=== PATIENT | female | born 1980 | race Caucasian/White ===

== ENCOUNTER 2018-09-16 20:00 | Inpatient (IN) | payer OTHER ==
[2018-09-16] MEDS ORDERED: Lidocaine 1% (PF) 30 ML VIAL SC PRN (20:52)
[2018-09-16] MEDS ORDERED: NS w/ Oxytocin 10 units 500 ML IV SCH ×2 (20:52)
[2018-09-16] MEDS ORDERED: Ondansetron PF 4 MG/2 ML Vial IVP PRN (20:52)
[2018-09-16] MEDS ORDERED: HYDROcodone/Acetaminophen 5/325 mg Tablet PO PRN ×2 (20:52)
[2018-09-16] MEDS ORDERED: Ibuprofen 800 MG TAB PO PRN (20:52)
[2018-09-16] MEDS ORDERED: NS / Oxytocin 40 units/1000ml 1,000 ML IV PRN (20:52)
[2018-09-16 20:58] VITALS: BMI 29.0
[2018-09-16 21:27] LABS: Hemoglobin 12.6 g/dL (12.0-16.0); Mean Corpuscular HGB CONC 35.4 g/dL (32.0-36.0); Mean Corpuscular Hemoglobin 32.8 pg (27.0-31.0); Mean Corpuscular Volume 92.8 fL (78.0-98.0); Mean Platelet Volume 8.3 fL (7.4-10.4); Platelet Count 256 thou/uL (130-400); RBC Distribution Width 12.5 % (11.5-14.5); Red Blood Cell (RBC) Count 3.82 mill/uL (4.20-5.40); White Blood Cell (WBC) Count 11.2 thou/uL (4.8-10.8)
--- NOTE | 2018-09-16 21:49 | PDOC.EVN ---
Event Note - Event Note Event Note: OBGYN FIRE PATROL Cook Cervical Balloon placement procedure: Indication: 39 weeks 6 days, requested placement per Dr Saeed I evaluated the patient at bedside at 2129. I discussed Cook balloon with her and partner. I discussed MOA and time span for max use (12 hrs). After verbal consent, speculum inserted into vagina and no evidence VB or ROM. CX was 1cm. CX prepped with sterile saline and large swabs. Cook balloon placed per FDA IFU guidelines: first the U balloon was inflated to 40ml, then the V balloon was pulled from the uterine cavity into the vagina and confirmed to be out of the cervix...V balloon filled to 20ml. After 3 minutes passed to allow uterine accomodation: balloons filled to capacity in 20ml increments: 80ml saline per balloon. No complications. Patient tolerated well No decels Balloon in at 2135
[2018-09-16] MEDS: Lactated Ringer's 1,000 ML IV SCH (22:00)
[2018-09-16] MEDS: Butorphanol Tartrate 1 MG/ML VIAL SLOW IVP PRN (22:08)
[2018-09-16] MEDS: Promethazine HCl 25 MG/ML VIAL IM PRN (22:09)
[2018-09-16 23:30] LABS: HBSAg Index 0.18 S/CO (0-0.99); Hep B Surf Ag Non-Reactive S/CO (NonReactive)
[2018-09-17] MEDS: Promethazine HCl 25 MG/ML VIAL IM PRN (00:27)
[2018-09-17] MEDS: Butorphanol Tartrate 1 MG/ML VIAL SLOW IVP PRN (00:28)
[2018-09-17] MEDS ORDERED: Fentanyl 4 mcg/Bup 0.1% Cadd 100 ML ONE ×2 (04:00→12:42)
[2018-09-17] MEDS ORDERED: Naloxone HCl 0.4 mg/ml Vial IVP PRN ×4 (04:42→18:54)
[2018-09-17] MEDS ORDERED: Acetaminophen 325 MG TAB PO PRN (04:42)
[2018-09-17] MEDS ORDERED: ePHEDrine/0.9% NaCl/PF SYRINGE 50 mg/10 ml SLOW IVP PRN (04:42)
[2018-09-17] MEDS ORDERED: diphenhydrAMINE 50 MG/ML VIAL IVP PRN ×2 (04:42→18:54)
[2018-09-17] MEDS ORDERED: Promethazine HCl 25 MG/ML VIAL IM PRN ×2 (04:42→18:54)
[2018-09-17] MEDS ORDERED: Eucerin (Mineral Oil/Petrolatum,White) 30 gm Jar TOP PRN ×2 (04:42→18:54)
[2018-09-17] MEDS ORDERED: Lactated Ringer's 500 ML IV PRN (04:42)
[2018-09-17] MEDS ORDERED: Ondansetron PF 4 MG/2 ML Vial IVP PRN ×3 (04:42→21:51)
[2018-09-17] MEDS ORDERED: Fentanyl 4 mcg/Bupivacaine 0.1% Cassette 100 ML EPIDURAL SCH (04:45)
[2018-09-17] MEDS ORDERED: Communication Order-Pharmacy FS SCH ×2 (04:45→19:00)
--- NOTE | 2018-09-17 07:57 | PDOC.LDHP ---
Labor and Delivery H&P Chief complaint: scheduled induction HPI: Pt is a 38yo G1 @ 40.0 weeks here for IOL. uncomplicated. Cook balloon placed last night and out this AM. Current gestational age (weeks): 40 Due date: 09/17/18 Dating criteria: last menstrual period, first trimester ultrasound Grav: 1 Para: 0 Current complications: none Abnormal US findings: No Current medications: pre- vitamins Previous surgical history: other (breast reconstruction) Allergies/Adverse Reactions: Allergies Allergy/AdvReac Type Severity Reaction Status Date / Time No Allergy Information Allergy Verified 09/16/18 21:01 Available Social history: none - Physical Exam Vital signs reviewed and normal: yes General: resting Heart: RRR Lungs: CTAB Abdomen: gravid Extremeties: no edema FHT: category 1 - Vaginal Exam cm dilated: 6 (AROM clear fluid on exam) Effacement: 50% Station: 0 - OB Labs Blood type: A RH: positive Antibody Screen: negative HIV: negative RPR: negative HEPSAg: negative 1 hour GCT: positive (134) 3 hour GTT: neg GBS: negative Rubella: immune - Assessment L&D Assessment: elective induction at term - Plan Plan: admit to L&D, labor augmentation if indicated, informed consent obtained -: A/P: 38yo G1 @ 40 weeks here for IOL. SP Cook Balloon and AROM @ 6cm. Plan of care reviewed patient.
[2018-09-17] MEDS: Calcium Carbonate 500 MG ChewTAB PO PRN ×2 (15:07→16:00)
[2018-09-17] MEDS ORDERED: CEFAZOLIN 2 GM/50 ML BAG ONE (17:53)
[2018-09-17] MEDS ORDERED: Bupivacaine 0.5% 10 ML VIAL ONE (18:09)
[2018-09-17] MEDS ORDERED: Bicitra 30 ML UDCUP PO SCH (18:15)
[2018-09-17] MEDS ORDERED: Clindamycin/D5W 900 MG in Premix Bag 1 BAG IVPB SCH (18:15)
[2018-09-17] MEDS ORDERED: Ondansetron PF 4 MG/2 ML Vial ONE (18:15)
[2018-09-17] MEDS ORDERED: ePHEDrine/0.9% NaCl/PF SYRINGE 50 mg/10 ml ONE (18:15)
[2018-09-17] MEDS ORDERED: Oxytocin 10 UNITS/ML VIAL ONE (18:15)
[2018-09-17] MEDS ORDERED: Ketorolac Tromethamine 30 MG/ML VIAL ONE (18:15)
[2018-09-17] MEDS ORDERED: PHENYLEPHRINE-NS 100 MCG/ML 10 ML SYRINGE ONE (18:15)
[2018-09-17] MEDS ORDERED: CEFAZOLIN/Water 2 GM/20 ML SYRINGE SLOW IVP SCH (18:15)
--- NOTE | 2018-09-17 18:17 | PDOC.LDPN ---
Labor & Delivery Progress Note - Subjective Subjective: comfortable - Objective Vital signs reviewed and normal: yes General: resting Uterine fundus: non tender Dilation: 6 Effacement: 75% Station: 0 FHT: category 1 AROM: clear fluid - Assessment (1) 40 weeks gestation of Code(s): Z3A.40 - 40 WEEKS GESTATION OF Current Visit: Yes Status : Acute Plan: continue plan of care -: A/P: Cervix noted to be effaced compared to admit exam. Continue pitocin.
[2018-09-17] MEDS ORDERED: Lidocaine 2% 10 ML INJ ONE (18:18)
--- NOTE | 2018-09-17 18:19 | PDOC.LDPN ---
Labor & Delivery Progress Note - Subjective Subjective: other (anxious, request CS) - Objective Vital signs reviewed and normal: yes Abnormal vital signs: T99.7 axillary General: NAD Uterine fundus: non tender Dilation: 9 Effacement: 75% Station: 0 - Assessment (1) 40 weeks gestation of Code(s): Z3A.40 - 40 WEEKS GESTATION OF Current Visit: Yes Status : Acute (2) Arrested active phase of labor Code(s): O62.1 - SECONDARY UTERINE INERTIA Current Visit: Yes Status: Acute Plan: other -: A/P:38 yo G1 @40 weeks, here for IOL w slow progress to active phase and pt requesting CS. Discussed more time for process of labor vs CS at maternal request with risk and benefits of both. Pt request CS. Ancef and Clinda for surg prophylaxis ordered.
[2018-09-17] MEDS ORDERED: Bicitra 30 ML UDCUP ONE (18:22)
[2018-09-17] MEDS ORDERED: CEFAZOLIN 2 GM/50 ML-DEXTROSE 2 GM in Premix Bag 1 BAG IVPB SCH (18:30)
[2018-09-17] MEDS ORDERED: Promethazine HCl 25 MG SUPP PR PRN (18:54)
[2018-09-17] MEDS ORDERED: Naloxone HCl 0.4 mg/ml Vial IV PRN (18:54)
[2018-09-17] MEDS ORDERED: Meperidine HCl/PF 25 MG/ML VIAL SLOW IVP PRN (18:54)
[2018-09-17] MEDS ORDERED: L&D-Morphine 4 MG/ML VIAL SLOW IVP PRN (18:54)
[2018-09-17] MEDS ORDERED: HYDROmorphone 2 MG/ML VIAL SLOW IVP PRN (18:54)
[2018-09-17] MEDS ORDERED: Ondansetron HCl/PF 4 MG/2 ML Vial IVP PRN (18:54)
[2018-09-17] MEDS ORDERED: Morphine PF 1 MG/ML SYR ONE (19:00)
[2018-09-17] MEDS ORDERED: Ketorolac Tromethamine 30 MG/ML VIAL IVP SCH (19:00)
--- NOTE | 2018-09-17 19:10 | PDOC.OPDEL ---
OB Operative/Delivery Note Delivery Dr/Surgeon: Christophe Assist: Eyad Pre-Delivery Diagnosis: arrest of dilation (at 7cm) Procedure/Post Delivery Dx: primary low transverse CS Weeks gestation: 40 - Findings A Sex: female Weight: 7 lb - 1 min: 8 - 5 min: 9 - Additional Findings/Plan Placenta delivered: spontaneous findings: low transverse hysterotomy without extension, normal uterus, normal tubes, normal ovaries Estimated blood loss: 800ml Compilations/Other Findings: nuchal cord x 1 Post delivery plan: routine recovery
[2018-09-17] MEDS: Lactated Ringer's 1,000 ML IV SCH ×2 (19:13→19:14)
[2018-09-17] MEDS ORDERED: Lanolin Ointment 7 GM TUBE TOP PRN (21:51)
[2018-09-17] MEDS ORDERED: Meperidine HCl/PF 25 MG/ML VIAL IM PRN (21:51)
[2018-09-17] MEDS ORDERED: NS / Oxytocin 40 units/1000ml 1,000 ML IV SCH (21:51)
[2018-09-17] MEDS ORDERED: HYDROcodone/Acetaminophen 5/325 mg Tablet PO PRN (21:51)
[2018-09-17] MEDS ORDERED: diphenhydrAMINE 25 MG CAP PO PRN (21:51)
[2018-09-17] MEDS ORDERED: Bisacodyl 10 MG SUPP PR PRN (21:51)
[2018-09-17] MEDS ORDERED: Lactated Ringer's 1,000 ML IV SCH (21:51)
[2018-09-17] MEDS ORDERED: Zolpidem Tartrate 5 MG TAB PO PRN (21:51)
[2018-09-17] MEDS ORDERED: Ibuprofen 800 MG TAB PO SCH (22:00)
[2018-09-17] MEDS ORDERED: Docusate Calcium (SURFAK) 240 MG CAP PO SCH (22:15)
[2018-09-17] MEDS: Ketorolac Tromethamine 30 MG/ML VIAL IVP PRN (23:23)
--- NOTE | 2018-09-17 23:32 | OP ---
DATE OF PROCEDURE: 09/17/2018 PREOPERATIVE DIAGNOSES: 1. A 38-year-old G1 at 40 weeks. 2. Arrest of dilation at 7 cm. POSTOPERATIVE DIAGNOSES: 1. A 38-year-old G1 at 40 weeks. 2. Arrest of dilation at 7 cm. STRIP MINE SUPERVISOR: MD Eyad ANESTHESIA: Epidural. COMPLICATIONS: None. ESTIMATED BLOOD LOSS: 800 mL. QUANTITATIVE BLOOD LOSS: Pending. FINDINGS: 1. Low-transverse hysterotomy without extension. 2. Female , vigorous, Apgars 8 and 9 with nuchal cord reduced at the time of delivery and weight 7 pounds to the Nursery. 3. Placenta delivered. 4. Fundus firm after delivery of placenta and infusion of Pitocin. 5. Normal appearing uterus, tubes, and ovaries bilaterally. INDICATIONS: Ms. Bethany Funez was undergoing a scheduled induction of labor at 40 weeks. She had occluder balloon placed on 09/16/2018 and progressed to 6 cm and 80% effaced. On hospital day 2, artificial rupture of membranes was performed with clear fluids noted. The patient progressed slowly to 7 cm and after approximately 4 hours at 7 cm with adequate contractions, the patient requested a section. I counseled her on the option for more time to allow for the active labor process versus section, and the patient and her requested caesarean section. DESCRIPTION OF PROCEDURE: The patient was taken back to the OR with IV fluids running. When she was in the OR, she was placed in dorsal supine position with a left-sided tilt. An epidural catheter had previously been placed. The abdomen was prepped and draped in normal fashion per caesarean section and the surgeons were scrubbed in. The anesthesia was tested and found to be adequate. A Pfannenstiel skin incision was made with a scalpel. Skin incision was carried down through the subcutaneous tissue to the fascia. Once the fascia was reached, it was incised in the midline and extended superolaterally using curved Malloy scissors. Jacklyn clamps were placed at the superior border of the fascia, which was sharply and bluntly dissected off the rectus abdominis muscles. This process was repeated from the inferior border of the fascia down towards the level of pubic symphysis. The rectus muscles were then bluntly in the midline. The peritoneum was bluntly entered and stretched laterally. An Yusef O retractor was placed into the abdominal cavity for retraction, visualization, and protection of the wound. A bladder flap was created and the bladder was dissected away from the planned hysterotomy site. A low-transverse hysterotomy was made with the scalpel. The hysterotomy was bluntly entered and stretched using Hallman maneuver. Clear fluid was noted. The 's head was delivered without difficulty through the hysterotomy. Nuchal cord was reduced followed by delivery of the body. The infant was noted to have vigorous cry immediately after delivery. The cord was doubly clamped and cut. The was handed off to the special care nurses in attendance. Cord blood was collected. The placenta was delivered. The uterus was exteriorized, massaged to firm, and cleared of clot and debris. The uterus was returned to the abdominal cavity. The hysterotomy was then closed with #1 Monocryl suture in a running locked fashion. After the hysterotomy was closed, an additional [id number] suture was placed just to the left of the midline for additional hemostasis. After the hysterotomy was noted to be hemostatic, it was irrigated and dried. It was inspected again with no bleeding noted. The rectus muscles and fascia were inspected with no bleeding noted. The initial count was correct. The fascia was closed with PDS suture in a running fashion from [id number]. The subcutaneous tissue was then irrigated and dried. No areas of bleeding were noted. Subcutaneous tissue was reapproximated with plain gut suture. The skin was closed with 4-0 Monocryl and dressed with Dermabond dressing. The final count was correct. The uterus was noted to be firm. The patient was cleaned, dried, and taken to the recovery room in good condition. Job ID: [id number] [facility]
[2018-09-18] MEDS: Ketorolac Tromethamine 30 MG/ML VIAL IVP PRN (06:45)
[2018-09-18 07:07] LABS: Hemoglobin 9.7 g/dL (12.0-16.0); Mean Corpuscular HGB CONC 35.2 g/dL (32.0-36.0); Mean Corpuscular Hemoglobin 33.4 pg (27.0-31.0); Mean Corpuscular Volume 94.8 fL (78.0-98.0); Mean Platelet Volume 8.4 fL (7.4-10.4); Platelet Count 190 thou/uL (130-400); RBC Distribution Width 12.6 % (11.5-14.5); Red Blood Cell (RBC) Count 2.92 mill/uL (4.20-5.40)
[2018-09-18] MEDS ORDERED: Adacel (T-DAP) 0.5 ML SYRINGE IM ONE (09:00)
[2018-09-18] MEDS: Prenatal Vitamin 1 TAB PO SCH (09:23)
[2018-09-18] MEDS: Ferrous Sulfate 325 MG TAB PO SCH ×2 (09:23→16:27)
[2018-09-18] MEDS: HYDROcodone/Acetaminophen 5/325 mg Tablet PO PRN ×4 (09:24→23:06)
[2018-09-18] MEDS: Docusate Calcium (SURFAK) 240 MG CAP PO SCH ×2 (09:24→20:06)
[2018-09-18] MEDS: Famotidine/PF 20 mg/2ml Vial SLOW IVP SCH (09:25)
[2018-09-18] MEDS: Simethicone Chewable 80 MG TAB PO PRN (09:28)
--- NOTE | 2018-09-18 09:55 | PDOC.PP ---
Post Progress Note Post Day #: 1 Subjective: doing well, leon out, hasn't ambulated yet, minimal pain,no NV, baby nursing well PO intake tolerated: yes Flatus: yes Ambulation: yes Vital Signs (12 hours) Temp Pulse Resp BP Pulse Ox 09/18/18 08:00 98.2 F 91 20 111/73 96 09/18/18 05:30 98.0 F 81 20 105/58 L 09/17/18 23:30 98.5 F 104 H 20 117/70 Weight Weight 159 lb - Physical Examination General: NAD Abdominal: no distention Fundus firm & at: below umb Extremities: negative homans (B) Skin: CS incision dry & intact, no rash Neurological: no gross focal deficits Psychiatric: A&Ox3, normal affect Result Diagrams: 09/18/18 06:27 Additional Labs: Post Labs Blood Type A POSITIVE 09/16/18 21:05 Hep Bs Antigen Non-Reactive S/CO (NonReactive) 09/16/18 21:05 (1) 40 weeks gestation of Code(s): Z3A.40 - 40 WEEKS GESTATION OF Status: Acute (2) Arrested active phase of labor Code(s): O62.1 - SECONDARY UTERINE INERTIA Status: Acute - Assessment/Plan POD1 sp CS for arrest @ 7cm, doing well, had one temperature elevation 99.7 right before CS, no fever post , continue post care.
--- NOTE | 2018-09-18 14:10 | OP ---
DATE OF PROCEDURE: 09/17/2018 This is a documentation that I functioned as a first mate to a primary for patient, Bethany Funez. Primary surgeon is Dr. Juan Saeed. For complete details, please refer to her dictated note. Job ID: [id number]
[2018-09-18] MEDS: Ibuprofen 800 MG TAB PO SCH ×2 (14:20→21:16)
[2018-09-19] MEDS: Ibuprofen 800 MG TAB PO SCH ×3 (06:32→22:05)
[2018-09-19] MEDS: Ferrous Sulfate 325 MG TAB PO SCH ×2 (07:46→16:29)
[2018-09-19] MEDS: HYDROcodone/Acetaminophen 5/325 mg Tablet PO PRN ×3 (07:47→20:14)
[2018-09-19] MEDS: Prenatal Vitamin 1 TAB PO SCH (09:48)
[2018-09-19] MEDS: Docusate Calcium (SURFAK) 240 MG CAP PO SCH ×2 (09:48→22:04)
[2018-09-19] MEDS: Simethicone Chewable 80 MG TAB PO PRN (09:48)
--- NOTE | 2018-09-19 10:10 | PDOC.PP ---
Post Progress Note Post Day #: 2 Subjective: doing well, min pain, eating well, no fever or chills, considering dc this PM vs tomorrow PO intake tolerated: yes Flatus: yes Ambulation: yes Vital Signs (12 hours) Temp Pulse Resp BP Pulse Ox 09/19/18 08:08 97.9 F 98 20 109/68 99 Weight Weight 159 lb - Physical Examination General: NAD Respiratory: non-labored breathing Abdominal: no distention Fundus firm & at: below umb Extremities: negative homans (B) Skin: CS incision dry & intact, no rash Neurological: no gross focal deficits Psychiatric: A&Ox3, normal affect Result Diagrams: 09/18/18 06:27 Additional Labs: Post Labs Blood Type A POSITIVE 09/16/18 21:05 Hep Bs Antigen Non-Reactive S/CO (NonReactive) 09/16/18 21:05 (1) 40 weeks gestation of Code(s): Z3A.40 - 40 WEEKS GESTATION OF Status: Acute (2) Arrested active phase of labor Code(s): O62.1 - SECONDARY UTERINE INERTIA Status: Acute - Assessment/Plan POD2 sp 1CS for arrest of active phase, possible DC this PM vs tomorrow, patient will let us know how she feels later today. Post op pain meds reviewed.
[2018-09-19] MEDS: Famotidine/PF 20 mg/2ml Vial SLOW IVP SCH (13:47)
[2018-09-20] MEDS: HYDROcodone/Acetaminophen 5/325 mg Tablet PO PRN ×2 (01:10→08:38)
[2018-09-20] MEDS: Ibuprofen 800 MG TAB PO SCH (06:34)
[2018-09-20 08:30] VITALS: BP 125/74; TEMP 97.9
[2018-09-20] MEDS: Famotidine/PF 20 mg/2ml Vial SLOW IVP SCH (08:34)
[2018-09-20] MEDS: Ferrous Sulfate 325 MG TAB PO SCH (08:37)
[2018-09-20] MEDS: Docusate Calcium (SURFAK) 240 MG CAP PO SCH (08:37)
[2018-09-20] MEDS: Prenatal Vitamin 1 TAB PO SCH (08:37)
--- NOTE | 2018-09-20 10:51 | PDOC.PP ---
Post Progress Note Post Day #: 3 Subjective: doing well, ready for DC PO intake tolerated: yes Flatus: yes Ambulation: yes Vital Signs (12 hours) Temp Pulse Resp BP Pulse Ox 09/20/18 08:29 97.9 F 87 20 125/74 99 Weight Weight 159 lb - Physical Examination General: NAD Respiratory: non-labored breathing Skin: CS incision dry & intact Psychiatric: A&Ox3, normal affect Result Diagrams: 09/18/18 06:27 Additional Labs: Post Labs Blood Type A POSITIVE 09/16/18 21:05 Hep Bs Antigen Non-Reactive S/CO (NonReactive) 09/16/18 21:05 (1) 40 weeks gestation of Code(s): Z3A.40 - 40 WEEKS GESTATION OF Status: Acute (2) Arrested active phase of labor Code(s): O62.1 - SECONDARY UTERINE INERTIA Status: Acute - Assessment/Plan POD3 doing well, no concerns, continue PNV at home.
--- NOTE | 2018-09-21 14:35 | DIS ---
DATE OF ADMISSION: 09/16/2018 DATE OF DISCHARGE: 09/20/2018 ADMISSION DIAGNOSIS: A 38-year-old, G1 at 40 weeks' gestation, admitted for induction of labor. DISCHARGE DIAGNOSIS: Status post primary low transverse section, day #3. HOSPITAL COURSE: Ms. Bethany Funez was admitted on 09/16/2018 where she underwent cervical ripening with a Cook balloon. With the Cook balloon in, she progressed to 6 cm, however, had an arrest of dilation at 7 cm and underwent a primary low-transverse section on 09/17/2018. The patient's course was uncomplicated. By day #3, she was ambulating, tolerating a regular diet, her pain was controlled with oral medications, and she was voiding well and passing gas. She was breast-feeding her baby without difficulty. She was discharged home on postoperative day #3 in good condition with instructions to follow up in my office in 1 week to check her skin incision and a 6-week visit. Job ID: [id number]
== END 2018-09-20 11:25 | disposition home or self-care (01) | DRG 788 ==
LOC: L&D 20:03 → 3SW 09-17 21:50
PROVIDERS: ADMIT Obstetrics & Gynecology; ATTEND Obstetrics & Gynecology
PROC: 0U7C7ZZ Dilation of Cervix, Via Natural or Artificial Opening (ICD-10-PCS; 2018-09-16)
PROC: 10D00Z1 Extraction of Products of Conception, Low, Open Approach (ICD-10-PCS; principal; 2018-09-17)
PROC: 10907ZC Drainage of Amniotic Fluid, Therapeutic from Products of Conception, Via Natural or Artificial Opening (ICD-10-PCS; 2018-09-17)
DX: O62.1 Secondary uterine inertia (principal); O69.81X0 Labor and delivery complicated by cord around neck, without compression, not applicable or unspecified; Z3A.40 40 weeks gestation of pregnancy; Z37.0 Single live birth
CPT/HCPCS: 36415; 51702; 85027; 86850; 86900; 86901; 87340; C1726; J0595; J1885; J2274; J2405; J2550; J2590; J3490; S0028